=== PATIENT | male | born 1960 | race Hispanic/Latino ===

== ENCOUNTER 2017-01-23 06:12 | Day surgery (SDC) | payer BC ==
[2017-01-17 06:36] VITALS: BMI 26.9
[2017-01-23] MEDS ORDERED: Propofol 10 mg/ml Inj (20 ML) ONE (08:09)
[2017-01-23] MEDS ORDERED: Sodium Chloride 0.9% 1,000 ML IV SCH (09:00)
[2017-01-23 09:32] VITALS: BP 120/75; PULSE 47; RESP 18; TEMP 98; O2SAT 100
== END 2017-01-23 09:50 | disposition home or self-care (01) ==
LOC: ENDO 06:12
PROVIDERS: ATTEND Specialist
DX: Z12.11 Encounter for screening for malignant neoplasm of colon (principal); K64.8 Other hemorrhoids; Q43.8 Other specified congenital malformations of intestine; Z86.010 Personal history of colon polyps
CPT/HCPCS: 45378; J2704; J7040